=== PATIENT | female | born 1970 | race Caucasian/White ===

== ENCOUNTER 2022-07-28 00:16 | Emergency (ER) | payer OTHER ==
[~2022-07-28] VITALS: Ht 160 cm; Wt 61.4 kg
[2022-07-28 02:32] VITALS: BP 123/76
[2022-07-28] MEDS ORDERED: LIDOCAINE 1% 10 ML VIAL SQ ONE (02:45)
[2022-07-28] MEDS ORDERED: DOXYCYCLINE HYCLATE 100 MG TABLET PO ONE (03:00)
[2022-07-28] MEDS ORDERED: DOXY-336 PO (03:00)
[2022-07-28] MEDS ORDERED: HYDROCODONE/ACETAMINOPHEN 5-325 MG TABLET PO ONE (03:15)
== END 2022-07-28 03:20 | disposition home or self-care (01) ==
LOC: EMS 00:19
DX: L02.811 Cutaneous abscess of head [any part, except face] (principal); F12.90 Cannabis use, unspecified, uncomplicated; F15.90 Other stimulant use, unspecified, uncomplicated; F17.210 Nicotine dependence, cigarettes, uncomplicated; Z88.0 Allergy status to penicillin; Z88.2 Allergy status to sulfonamides
CPT/HCPCS: 99283; 10060; J3490